=== PATIENT | female | born 1975 | race Caucasian/White ===

== ENCOUNTER 2016-12-30 18:38 | Observation (INO) | payer BC ==
[2016-12-30 18:52] VITALS: BMI 28.3
[2016-12-30 19:17] LABS: AUTOMATED BASOPHIL 0.7 % (0-2); AUTOMATED EOSINOPHIL 0.1 % (0-5); AUTOMATED LYMPH 8.5 % (17-44); AUTOMATED MONOCYTE 6.8 % (3-10); AUTOMATED NEUTROPHIL 83.9 % (45-76); MPV 8.3 fL (7.4-10.4)
[2016-12-30 19:34] LABS: BLOOD UREA NITROGEN 6 MG/DL (7-17); CALCULATED OSMOLALITY 266 MOs/Kg (270-290); CHLORIDE 100 mEq/L (98-107); GLUCOSE 99 MG/DL (70-99); SODIUM LEVEL 139 mEq/L (137-146); TOTAL PROTEIN 7.9 G/DL (6.3-8.2)
[2016-12-30] MEDS ORDERED: ONDANSETRON HCL 4 MG/2 ML VIAL IV ONE (21:25)
[2016-12-30] MEDS ORDERED: NS 1,000 ML IV ONE (21:25)
[2016-12-30] MEDS ORDERED: HYDROmorphone 1 MG INJECTION IV ONE (21:25)
[2016-12-30] MEDS ORDERED: Pharmacy Review for Metformin - IV Contrast Given SCH (22:00)
--- NOTE | 2016-12-30 22:26 | EDPRACDOC ---
- General Information Chief Complaint: Abdominal Pain Stated Complaint: RIGHT LOWER ABD PAIN Time Seen by Provider: 12/30/16 21:03 Information Source: Patient Mode Of Arrival: Car Home Medications: Home Medications Bupropion HCl [Wellbutrin Xl] 150 mg PO DAILY 12/30/16 Calcium 500 mg PO DAILY 12/30/16 Cetirizine HCl [Zyrtec] 10 mg PO DAILY 12/30/16 Clindamycin Phos/Benzoyl Perox [Neuac Gel] 1 applic TOP DIR 12/30/16 Oseltamivir Phosphate [Tamiflu] 75 mg PO .BID X 5D 12/30/16 Allergies/Adverse Reactions: Allergies Allergy/AdvReac Type Severity Reaction Status Date / Time No Known Allergies Allergy Verified 12/30/16 18:49 - History of Present Illness Onset: today HPI: PT PRESENTS TODAY WITH INCREASINGLY WORSE RLQ PAIN THAT BEGAN THIS MORNING. STATES THAT YESTERDAY SHE WAS DIAGNOSED WITH FLU. TODAY, ABD PAIN IS WORSE WITH ASSOCIATED NAUSEA. LOW GRADE FEVER. DENIES VOMITING/DIARRHEA, DYSURIA, VAGINAL BLEEDING/DISCHARGE. NO APPARENT DISTRESS. Pain Location: Reports: RLQ Pain Context: Reports: Spontaneous Pain Severity: Moderate Pain Quality: Reports: Cramping Pain Radiation: Reports: No Radiation Last Menstrual Period: 12/19 Control Method: Reports: BTL Modifying Factors: improves with: Movement (WORSENS) Female Associated Signs & Symptoms: Reports: Nausea, Fever Oral Intake: Decreased Urinary Output: Decreased ED Past Medical History - History Reviewed Yes Nurses notes reviewed and agree except as marked - Patient Medical History Psychological History: Denies: Depression - Social Medical History Smoking Status: Never smoker EDM Review of Systems - Review of Systems ROS Negative Except as Marked: Yes All systems reviewed and were negative except as marked Constitutional: Fever, Loss of Appetite Respiratory: No Symptoms Reported Cardiovascular: No Symptoms Reported Gastrointestinal: Nausea, Pain Genitourinary: No Symptoms Reported Neurological: No Symptoms Reported Musculoskeletal: No Symptoms Reported Integumentary: No Symptoms Reported - Physical Exam Constitutional: Alert (Awake), No apparent distress Oriented to: Time, Person, Place Last recorded Vital Signs: Last Vital Signs Temp 99.7 F 12/30/16 18:49 Pulse 117 12/30/16 18:49 Resp 18 12/30/16 18:49 BP 127/57 L 12/30/16 18:49 Pulse Ox 98 12/30/16 18:49 Oxygen Pulse Oxygen Saturation 98 O2 Device Room Air Oxygen Flow Rate Fraction of Inspired Oxygen ( FIO2) - HEENT Head: Normal Eye Exam: Normal Neck: Normal, Denies Pain, Midline - Respiratory/Cardiovascular Respiratory: Normal - CTA Cardiovascular: Normal - GI Palpation: Normal Tenderness: Non tender - Musculoskeletal Back: Normal Extremities: Normal - Integumentary Skin: Normal Lymphatics: Normal - Neurologic Cerebellar: Normal Mood Description: Normal Thought: Coherent Perception: Normal - Results 12/30/16 18:54 12/30/16 18:54 WBC 8.7 xk/uL (3.8-10.8) 12/30/16 18:54 RBC 4.43 xM/uL (4.20-5.40) 12/30/16 18:54 Hgb 13.2 g/dL (12.0-16.0) 12/30/16 18:54 Hct 38.9 % (36-47) 12/30/16 18:54 MCV 88 fL (81-99) 12/30/16 18:54 MCH 29.7 pg (27-32) 12/30/16 18:54 MCHC 33.9 g/dl (33-36) 12/30/16 18:54 RDW 12.7 % (11.5-14.5) 12/30/16 18:54 Plt Count 212 xk/uL (130-400) 12/30/16 18:54 MPV 8.3 fL (7.4-10.4) 12/30/16 18:54 Neut % (Auto) 83.9 % (45-76) H 12/30/16 18:54 Lymph % (Auto) 8.5 % (17-44) L 12/30/16 18:54 [place] % (Auto) 6.8 % (3-10) 12/30/16 18:54 Eos % (Auto) 0.1 % (0-5) 12/30/16 18:54 Baso % (Auto) 0.7 % (0-2) 12/30/16 18:54 Absolute Neuts (auto) 7.22 xk/uL (1.7-8.2) 12/30/16 18:54 Absolute Lymphs (auto) 0.70 xk/uL (0.65-4.75) 12/30/16 18:54 Sodium 139 mEq/L (137-146) 12/30/16 18:54 Potassium 3.3 mEq/L (3.5-5.1) L 12/30/16 18:54 Chloride 100 mEq/L (98-107) 12/30/16 18:54 Carbon Dioxide 28 mMOL/L (22-33) 12/30/16 18:54 Anion Gap 14 mEq/L (8-16) 12/30/16 18:54 BUN 6 MG/DL (7-17) L 12/30/16 18:54 Creatinine 0.70 MG/DL (0.52-1.04) 12/30/16 18:54 Estimated GFR (MDRD) TNP 12/30/16 18:54 Glucose 99 MG/DL (70-99) 12/30/16 18:54 Calculated Osmolality 266 MOs/Kg (270-290) L 12/30/16 18:54 Calcium 9.0 MG/DL (8.4-10.2) 12/30/16 18:54 Total Bilirubin 0.5 MG/DL (0.2-1.3) 12/30/16 18:54 AST 19 IU/L (14-36) 12/30/16 18:54 ALT 27 IU/L (9-52) 12/30/16 18:54 Alkaline Phosphatase 67 IU/L (38-126) 12/30/16 18:54 Total Protein 7.9 G/DL (6.3-8.2) 12/30/16 18:54 Albumin 4.3 G/DL (3.5-5.0) 12/30/16 18:54 Urine Color Yellow 12/30/16 22:23 Urine Clarity Clear 12/30/16 22:23 Urine pH 5.0 (5.0-8.0) 12/30/16 22:23 Ur Specific [place] 1.035 (1.003-1.035) 12/30/16 22:23 Urine Protein Trace (NEG/TRACE) 12/30/16 22:23 Urine Glucose (UA) Neg (NEGATIVE) 12/30/16 22:23 Urine Ketones 2+ (NEGATIVE) H 12/30/16 22:23 Urine Occult Blood Neg (NEG/TRACE) 12/30/16 22:23 Urine Nitrite Neg (NEGATIVE) 12/30/16 22:23 Urine Bilirubin Neg (NEGATIVE) 12/30/16 22:23 Urine Urobilinogen 0.2 MG/DL (0-1) 12/30/16 22:23 Ur Leukocyte Esterase Neg (NEGATIVE) 12/30/16 22:23 Urine RBC 5-10 (0-5) H 12/30/16 22:23 Urine WBC 5-10 (0-5) H 12/30/16 22:23 Ur Epithelial Cells 1+ 12/30/16 22:23 Urine Mucus Large (NEG/OCC) 12/30/16 22:23 Lab Results 12/30/16 12/30/16 12/30/16 22:23 18:54 18:54 WBC 8.7 RBC 4.43 Hgb 13.2 Hct 38.9 MCV 88 MCH 29.7 MCHC 33.9 RDW 12.7 Plt Count 212 MPV 8.3 Neut % (Auto) 83.9 H Lymph % (Auto) 8.5 L [place] % (Auto) 6.8 Eos % (Auto) 0.1 Baso % (Auto) 0.7 Absolute Neuts (auto) 7.22 Absolute Lymphs (auto) 0.70 Sodium 139 Potassium 3.3 L Chloride 100 Carbon Dioxide 28 Anion Gap 14 BUN 6 L Creatinine 0.70 Estimated GFR (MDRD) TNP Glucose 99 Calculated Osmolality 266 L Calcium 9.0 Total Bilirubin 0.5 AST 19 ALT 27 Alkaline Phosphatase 67 Total Protein 7.9 Albumin 4.3 Urine Color Yellow Urine Clarity Clear Urine pH 5.0 Ur Specific [place] 1.035 Urine Protein Trace Urine Glucose (UA) Neg Urine Ketones 2+ H Urine Occult Blood Neg Urine Nitrite Neg Urine Bilirubin Neg Urine Urobilinogen 0.2 Ur Leukocyte Esterase Neg Urine RBC 5-10 H Urine WBC 5-10 H Ur Epithelial Cells 1+ Urine Mucus Large - Departure Disposition: Admit IP To This Hospital Condition: Stable Final Diagnosis: Appendicitis Instructions: Acute Abdominal Pain (ED) Referrals: None,No Provider [Primary Care Provider] - One Week Prescriptions: No Action Cetirizine HCl [Zyrtec] 10 mg PO DAILY Bupropion HCl [Wellbutrin Xl] 150 mg PO DAILY Clindamycin Phos/Benzoyl Perox [Neuac Gel] 1 applic TOP DIR Oseltamivir Phosphate [Tamiflu] 75 mg PO .BID X 5D Calcium 500 mg PO DAILY Decision to Admit Time: 23:56 Decision to admit date: 12/30/16 Decision to admit: from ED - Physician Consulted Surgery Time Called: 23:56 Provider Called: Facundo Ley Time Show Card Writer Returned Call: 23:56
[2016-12-30 22:48] LABS: LEUKOCYTES/URINE NEG (NEGATIVE); NITRITE/URINE NEG (NEGATIVE); URINE OCCULT BLOOD NEG (NEG/TRACE)
--- NOTE | 2016-12-30 23:43 | DIRPT ---
CLINICAL DATA: Right lower quadrant pain EXAM: CT ABDOMEN AND PELVIS WITH CONTRAST TECHNIQUE: Multidetector CT imaging of the abdomen and pelvis was performed using the standard protocol following bolus administration of intravenous contrast. CONTRAST: 100 cc Isovue 370 intravenous COMPARISON: None. FINDINGS: Lower chest and abdominal wall: Shallow fatty left inguinal hernia Hepatobiliary: 2 small hepatic cysts. No evidence of biliary obstruction or stone. Pancreas: Unremarkable. Spleen: Unremarkable. Adrenals/Urinary Tract: Negative adrenals. No hydronephrosis or stone. Unremarkable bladder. Reproductive:No pathologic findings. Stomach/Bowel: Dilated and fluid-filled appendix with thick enhancing saunders and mesoappendiceal fat inflammation. The appendix extends inferiorly from the cecum measures up to 12 mm outer wall diameter. No perforation or abscess identified. Small pelvic fluid that is non loculated. Vascular/Lymphatic: No acute vascular abnormality. No mass or adenopathy. Musculoskeletal: No acute abnormalities. IMPRESSION: Acute suppurative appendicitis without perforation or abscess. Electronically Signed By: Kvng Toscano M.D. On: 12/30/2016 23:40
[2016-12-31] MEDS ORDERED: ONDANSETRON HCL 4 MG/2 ML VIAL IV PRN ×2 (00:31→06:50)
[2016-12-31] MEDS ORDERED: MORPHINE 4 MG/ML INJECTION IV PRN (00:31)
[2016-12-31] MEDS ORDERED: PIPERACILLIN AND TAZOBACTAM 3.375 GM in D5W 100 ML IV ONE (00:40)
[2016-12-31] MEDS ORDERED: MORPHINE 2 MG/ML INJECTION IV PRN ×4 (00:44)
[2016-12-31] MEDS: LR 1,000 ML IV SCH ×2 (01:24→10:34)
[2016-12-31] MEDS ORDERED: Vaccine Screening Complete SCH (02:00)
--- NOTE | 2016-12-31 04:25 | HISTPHYS ---
- Chief Complaint RLQ Pain - History of Present Illness 41 YO with RLQ pain came to the ER and had workup which showed that she has acute appendicitis. She had not been feeling well this past weekend and tested positive for the flu. She has been on Tamiflu for the past day. The pain is constant and a 4/10. No alleviating factors. - Medical History Cardiac History: Reports: No Significant History Respiratory History: Reports: No Significant History GI/ History: Reports: No Significant History Musculoskeletal History: Reports: No Significant History Systemic History: Reports: No Significant History Neurological History: Reports: No Significant History Psychological History: Reports: Depression - Surgical History Reports: No Significant History - Medictions/Allergies Allergies No Known Allergies Allergy (Verified 12/30/16 18:49) Home Medications Bupropion HCl [Wellbutrin Xl] 150 mg PO DAILY 12/30/16 Calcium 500 mg PO DAILY 12/30/16 Cetirizine HCl [Zyrtec] 10 mg PO DAILY 12/30/16 Clindamycin Phos/Benzoyl Perox [Neuac Gel] 1 applic TOP DIR 12/30/16 Oseltamivir Phosphate [Tamiflu] 75 mg PO .BID X 5D 12/30/16 - Family History Reports: Hypertension (Parents), Cancer (Father [place], skin [place]). Denies: Diabetes, Stroke, Cardiac Disorders - Social History Travel Outside of [place] in the Last 3 Months?: No Smoking Status: Never smoker - Review of Systems Constitutional: Fatigue, Loss of Appetite. negative: Chills, Fever Eyes: negative: Pain, Photophobia Ears: negative: Hearing Loss, Tinnitus Nose: negative: Congestion, Deformity, Ecchymosis Throat/Neck: negative: Pain, Masses Respiratory: Cough. negative: Hemoptysis Cardiovascular: negative: Chest Pain, Edema, Palpitations Gastrointestinal: Nausea, Abdominal Pain, Diarrhea. negative: Vomiting, Melena , Hematochezia Genitourinary: negative: Dysuria, Hematuria Neurological: Headache, Weakness Musculoskeletal:: Joint Pain, Muscle Pain Integumentary: negative: Itching, Rash, Wound Allergic/Immunologic: negative: Hives, Itching Endocrine: negative: Weight Gain, Weight Loss, Excessive Thirst, Excessive Hunger Psychiatric: negative: Anxiety, Depression - Physical Exam Vital Signs: Initial Vitals Temperature 99.7 F 12/30/16 18:49 Pulse Rate 117 12/30/16 18:49 Respiratory Rate 18 12/30/16 18:49 Blood Pressure 127/57 L 12/30/16 18:49 Pulse Oxygen Saturation 98 12/30/16 18:49 Constitutional: No apparent distress, Alert. negative: Confused Oriented to: Time, Person, Place - HEENT Head: Normal Respiratory: Normal - CTA. negative: Rhonchi, Stridor Cardiovascular: Normal. negative: Irregular - GI Auscultation: Normal Tenderness: Moderate, RLQ. negative: Guarding, Rebound, Rigidity - Musculoskeletal Back: negative: Ecchymosis, CVA Tenderness Extremities: negative: Calf Tenderness, Clubbing, Cyanosis, Edema - Integumentary Skin: Warm, Dry Lymphatics: negative: Adenopathy, Inguinal Erythema - Neurologic Cranial Nerve: Normal (CN II-XII intact sensation, strength 5/5) Mood Description: Appropriate. negative: Anxious Thought: Coherent. negative: Delusions - Assessment/Plan (1) RLQ abdominal pain R10.31 - RIGHT LOWER QUADRANT PAIN Acute Present on Admission: Yes (2) Nausea R11.0 - NAUSEA Acute Present on Admission: Yes (3) Appendicitis K37 - UNSPECIFIED APPENDICITIS Acute Present on Admission: Yes (4) Flu syndrome J11.1 - FLU DUE TO UNIDENTIFIED INFLUENZA VIRUS W OTH RESP MANIFEST Acute Present on Admission: Yes Case Care Discussed with: Patient Plan: Will admit, start IVF and IV antibiotics. Will need to have appendectomy. The risks ad benefits were discussed. She is agreeable to proceed.
[2016-12-31] MEDS ORDERED: NS 500 ML IV ONE (04:58)
[2016-12-31] MEDS: PIPERACILLIN AND TAZOBACTAM 3.375 GM in D5W 100 ML IV SCH ×2 (06:07→15:13)
[2016-12-31] MEDS ORDERED: ONDANSETRON HCL 4 MG ODT TAB PO PRN (06:50)
[2016-12-31] MEDS ORDERED: hydrALAZINE 20 MG/ML VIAL IV PRN (06:50)
[2016-12-31] MEDS ORDERED: PROMETHAZINE 25 MG/ML VIAL IV PRN ×2 (06:50)
[2016-12-31] MEDS ORDERED: FENTANYL 100 MCG/2 ML VIAL IV PRN ×2 (06:50)
[2016-12-31] MEDS ORDERED: HYDROmorphone 1 MG INJECTION IV PRN ×2 (06:50)
[2016-12-31] MEDS ORDERED: LABETALOL 20 MG/4 ML SYRINGE IV PRN (06:50)
[2016-12-31] MEDS ORDERED: MEPERIDINE 25 MG/ML TUBEX IV PRN (06:50)
--- NOTE | 2016-12-31 06:50 | SC.ANESPOS ---
[id number], Hemodynamically Stable, Pain Control Adequate Phase I & II Recovery Complete: Yes Apparent Anesthesia Complication: No : N - Vital Signs Blood Pressure: 103/62 Pulse: 95 Resp Rate: 18 O2 Sat: 97 Temp: 98.6 F
[2016-12-31] MEDS ORDERED: BUPIVACAINE 0.25% 30 ML VIAL ONE (07:17)
--- NOTE | 2016-12-31 07:23 | HIM.ANES ---
Anesthesia Evaluation & Plan - Focused Review of Systems Cardiac History: No: Hx Cardiac Disorders HEENT: Yes: Hx Vision Problem (glasses, contacts) Respiratory: Yes: Hx Recent Cold/Flu (Dx. FLU 12/30/16) Gastrointestinal: No: Hx Gastrointestinal Disorders Neurological/Musculoskeletal: No: Hx Neurological Disorders Psychological: Yes Hx Depression, Yes Hx Mental/Emotional Disorders Blood/Autoimmune: No: Hx Hepatitis (type) Smoking Status: Never smoker Other Surgical History: Tubal, Lap. for remonal of IUD - Focused Physical Exam NPO since: 99 Mallampati: Class II Thyromental Distance: Greater than 3 Dental: Normal - no significant findings Cardiovascular/Chest: Normal Respiratory: Lungs clear Any problems with anesthesia, including nausea and vomiting?: No Any relatives with a history of Malignant Hyperthermia?: No Does patient have a history of Malignant Hyperthermia?: No Beta Verenice given (if appropriate): N/A Other: Problem List Problem Status Onset Appendicitis Acute Flu syndrome Acute Nausea Acute RLQ abdominal pain Acute Allergies Allergy/AdvReac Type Severity Reaction Status Date / Time No Known Allergies Allergy Verified 12/30/16 18:49 Home Medications Medication Instructions Recorded Last Taken Type Bupropion HCl [Wellbutrin Xl] 150 mg PO DAILY 12/30/16 12/30/16 History Calcium 500 mg PO DAILY 12/30/16 12/30/16 History Cetirizine HCl [Zyrtec] 10 mg PO DAILY 12/30/16 12/30/16 History Clindamycin Phos/Benzoyl Perox 1 applic TOP DIR 12/30/16 Unknown History [Neuac Gel] Oseltamivir Phosphate [Tamiflu] 75 mg PO .BID X 5D 12/30/16 12/30/16 History Height and Weight Patient's weight 173 lb 7 oz Weight (Calculated Kilograms) 78.670 Vital Signs Temperature 98.6 F 12/31/16 06:54 Pulse Rate 95 12/31/16 06:54 Respiratory Rate 18 12/31/16 06:54 Blood Pressure 103/62 12/31/16 06:54 Pulse Oxygen Saturation 97 12/31/16 06:54 - Anesthetic Plan Anesthesia Type: General ASA Class: 2, E -: I have examined this patient and reviewed the medical record. The patient has been assessed prior to anesthesia. Risks and benefits of anesthesia and anesthetic technique options have been discussed and all questions answered. The patient accepts the risk and desires me to proceed with the planned anesthetic.
--- NOTE | 2016-12-31 08:42 | HIMOPRPT ---
PROCEDURE: DATE OF PROCEDURE: 12/31/16 PREOPERATIVE DIAGNOSIS: Right lower quadrant pain, appendicitis. POSTOPERATIVE DIAGNOSIS: Right lower quadrant pain, appendicitis. PROCEDURE: Laparoscopic appendectomy. SURGEON: Facundo Ley MD ANESTHESIA: General. COMPLICATIONS: None. ESTIMATED BLOOD LOSS: Minimal OPERATIVE NOTE: The patient was placed supine on the operating room table. After induction of anesthesia, patient was prepped and draped in the usual fashion. A small 5 mm incision was made in the supraumbilical region and a 5-mm Optiview trocar was placed without any difficulties. The abdomen was insufflated with CO2 until a pressure of 15mm Hg was achieved. Camera was introduced and the abdomen was inspected. A 12-mm port was placed in the suprapubic region, and an 5-mm port was placed in the left lower quadrant. The patient underwent mobilization of the appendix. The mesoappendix was taken down using the Harmonic Scalpel. A laparoscopic linear stapler was placed at the base of the appendix and this was stapled off. The appendix was placed into an retrieval bag. We irrigated this area and suctioned out the irrigation. The staple line remained completely intact and hemostatic. We did run the small bowel and no evidence of a diverticulum was noted. No other abnormalities were seen. We removed the ports and removed the appendix.We closed the larger port site using 0-Vicryl sutures. The wounds were all irrigated and then infiltrated with 0.25% Marcaine. The skin edges were approximated using 4-0 Monocryl and then Dermabond. The patient tolerated this well. Sponge, needle, and instrument counts were correct.
--- NOTE | 2016-12-31 08:45 | PCM.DCS92 ---
- Final/Secondary Discharge Diagnosis (1) RLQ abdominal pain Resolved R10.31 - RIGHT LOWER QUADRANT PAIN Present on Admission: Yes (2) Nausea Resolved R11.0 - NAUSEA Present on Admission: Yes (3) Appendicitis Resolved K37 - UNSPECIFIED APPENDICITIS Present on Admission: Yes (4) Flu syndrome Acute J11.1 - FLU DUE TO UNIDENTIFIED INFLUENZA VIRUS W OTH RESP MANIFEST Present on Admission: Yes Discharge Disposition: Home Discharge Condition: Stable Cognitive Discharge Status: Unimpaired Fuctional Discharge Status: Independent Physician Follow up/Referrals: None,No Provider [Family Provider] - One Week Facundo Ley MD [Staff Physician] - Call for Appointment Home Medications/ New Prescriptions: No Action Cetirizine HCl [Zyrtec] 10 mg PO DAILY Bupropion HCl [Wellbutrin Xl] 150 mg PO DAILY Clindamycin Phos/Benzoyl Perox [Neuac Gel] 1 applic TOP DIR Oseltamivir Phosphate [Tamiflu] 75 mg PO .BID X 5D Calcium 500 mg PO DAILY Diet at Discharge: Regular Activity: As Tolerated, No Heavy Lifting Call Office For: Worsening Symptoms - DC Summary Notes Hospital Course Note:: Discharge summary on patient named DAVID LEACH admitted to [facility] on 12/31/16 by Facundo Ley MD. Date of discharge is . Patient was admitted with acute appendicitis. She underweent lap appendectomy. She has done well and will be d/c'd home. She also has the Flu and will need to finish off her Tamiflu. - Physical Exam Vital Signs: Initial Vitals Temperature 99.7 F 12/30/16 18:49 Pulse Rate 117 12/30/16 18:49 Respiratory Rate 18 12/30/16 18:49 Blood Pressure 127/57 L 12/30/16 18:49 Pulse Oxygen Saturation 98 12/30/16 18:49 Constitutional: No apparent distress Oriented to: Time, Person, Place Respiratory: Normal - CTA Cardiovascular: Normal - GI Tenderness: Mild
[2016-12-31] MEDS ORDERED: BuPROPion 150 MG XL TAB PO SCH (09:00)
[2016-12-31] MEDS ORDERED: OSELTAMIVIR PHOSPHATE 75 MG CAP PO SCH (09:00)
[2016-12-31] MEDS ORDERED: OXYCODONE HCL 5 MG TABLET PO PRN (09:15)
[2016-12-31] MEDS ORDERED: Pharmacy Discontinue All Previous Acetaminophen Orders SCH (09:15)
[2016-12-31] MEDS ORDERED: FENTANYL 100 MCG/2 ML VIAL ONE (09:22)
[2016-12-31] MEDS ORDERED: Acetaminophen, Intravenous 1,000 MG/100 ML IVBOT IV ONE (09:30)
[2016-12-31] MEDS ORDERED: ROCURONIUM 50 MG/5 ML VIAL IV ONE (10:00)
[2016-12-31] MEDS ORDERED: GLYCOPYRROLATE 1 MG VIAL IM ONE (10:00)
[2016-12-31] MEDS ORDERED: LIDOCAINE 100 MG PFS IV ONE (10:00)
[2016-12-31] MEDS ORDERED: ONDANSETRON HCL 4 MG/2 ML VIAL IV ONE (10:00)
[2016-12-31] MEDS ORDERED: METOCLOPRAMIDE 10 MG/2 ML VIAL IV ONE (10:00)
[2016-12-31] MEDS ORDERED: FENTANYL 100 MCG/2 ML VIAL IV ONE (10:00)
[2016-12-31] MEDS ORDERED: PROPOFOL 200 MG/20 ML VIAL IV ONE (10:00)
[2016-12-31] MEDS ORDERED: SUCCINYLCHOLINE 20 MG/1 ML INJ 10 ML MDV IV ONE (10:00)
[2016-12-31] MEDS ORDERED: DEXAMETHASONE 4 MG/ML VIAL IV ONE (10:00)
[2016-12-31] MEDS ORDERED: MIDAZOLAM 2 MG/2 ML VIAL IV ONE (10:00)
[2016-12-31] MEDS ORDERED: NEOSTIGMINE 1 MG/1 ML (1:1000) INJ 10 ML MDV IM ONE (10:00)
[2016-12-31 13:23] VITALS: BP 103/62; PULSE 95; TEMP 98.6
[2016-12-31] MEDS ORDERED: Acetaminophen, Intravenous 1,000 MG/100 ML IVBOT IV SCH (14:30)
[2017-01-01] MEDS ORDERED: ACETAMINOPHEN 325 MG/TAB TABLET PO SCH (14:00)
== END 2016-12-31 16:33 | disposition home or self-care (01) ==
LOC: ED 18:38 → INTOOBSV 12-31 00:31 → MPS3 12-31 00:31
PROVIDERS: ADMIT Surgery; ATTEND Surgery
PROC: 0DTJ4ZZ Resection of Appendix, Percutaneous Endoscopic Approach (ICD-10-PCS; principal; 2016-12-31 07:30)
DX: K35.3 Acute appendicitis with localized peritonitis (principal); J11.1 Influenza due to unidentified influenza virus with other respiratory manifestations
CPT/HCPCS: 36415; 74177; 80053; 81001; 85025; 96361; 96374; 96375; 99284; A9698; G0378; J0131; J0330; J1100; J1170; J2001; J2250; J2270; J2405; J2543; J2710; J2765; J3010; J3490; J7060; S0020